=== PATIENT | male | born 1980 | race African-American/Black ===

== ENCOUNTER 2016-11-23 07:30 | Emergency (ER) | payer SELFPAY ==
[~2016-11-23] VITALS: Ht 175.3 cm; Wt 104.5 kg
[~2016-11-23 07:30] MED LIST: ONDA4
[2016-11-23 07:32] VITALS: BP 181/96; PULSE 80; RESP 18; TEMP 98; O2SAT 98
--- NOTE | 2016-11-23 08:12 | PD ---
HPI Chief Complaint: Cold / Flu Symptoms Time Seen by Provider: 08:09 Travel History International Travel<30 days: No Contact w/Intl Traveler<30days: No Traveled to known affect area: No History of Present Illness HPI Patient comes in for evaluation of sore throat, generalized body aches, sinus congestion, dry cough that began yesterday. Patient denies any known fevers, headaches, nausea, vomiting, abdominal pain, diarrhea, shortness of breath, chest pain, or known sick contacts. Patient denies doing anything for this. Patient states sore throat was worse with swallowing. Denies any radiation of the pain. PFSH Past Surgical History Other Surgery: Yes (LEFT JAW R/T FRACTURE) Social History Alcohol Use: Yes (OCC) Tobacco Use: Yes (1 PPD) Substance Use: Yes (MARIJUANA DAILY) Allergies-Medications (Allergen,Severity, Reaction): Coded Allergies: No Known Allergies (Unverified , 11/23/16) Reported Meds & Prescriptions Reported Meds & Active Scripts Active No Active Prescriptions or Reported Medications Review of Systems Except as stated in HPI: all other systems reviewed are Neg Physical Exam Narrative GENERAL: Well-developed, overly nourished, in no acute distress, and non-ill appearing. SKIN: Warm and dry. HEAD: Atraumatic. Normocephalic. EYES: Pupils equal and round. EOMI. No scleral icterus. No injection or drainage. ENT: No nasal bleeding or discharge. Mucous membranes pink and moist. Tympanic membranes pearly garcia bilaterally. Posterior pharynx mildly erythematous without exudate. Uvula is midline. No tenderness to facial sinuses to palpation. Patient is able to swallow own saliva and speaking in full sentences. NECK: Trachea midline. No cervical lymphadenopathy. Supple. No nuclear rigidity. CARDIOVASCULAR: Regular rate and rhythm. No murmur appreciated. RESPIRATORY: No accessory muscle use. No respiratory distress. Clear to auscultation. Breath sounds equal bilaterally. MUSCULOSKELETAL: No obvious deformities. No clubbing. No cyanosis. No edema. Full range of motion. NEUROLOGICAL: Awake and alert. No obvious cranial nerve deficits. Motor grossly within normal limits. Normal speech. PSYCHIATRIC: Appropriate mood and affect; insight and judgment normal. Data Data Last Documented VS Vital Signs Date Time Temp Pulse Resp B/P Pulse Ox O2 Delivery O2 Flow Rate FiO2 11/23/16 07:32 98.0 80 18 181/96 98 Room Air Orders Group A Rapid Strep Screen (11/23/16 08:08) Influenzae A/B Antigen (11/23/16 08:08) Strep Culture (Group A) (11/23/16 08:20) MDM Medical Decision Making Medical Screen Exam Complete: Yes Emergency Medical Condition: Yes Differential Diagnosis Strep pharyngitis, viral pharyngitis, influenza, viral syndrome, upper respiratory infection, other Narrative Course Patient looks great, non-ill appearing. The patient is tolerating fluids and is well hydrated. Appears viral symptom complex. No clinical evidence by history or evaluation to suspect meningitis and/or sepsis. There was no evidence to suggest peritonsillar abscess or retropharyngeal abscess. I discussed with the patient, diagnosis, plan of care and to follow up with the patients primary physician. The patient was instructed to return if the worsens in anyway, especially if not tolerating fluids, increased pain or swelling, difficulty swallowing or breathing, or as needed. The patient agreed with plan. Patient in no obvious distress upon re-evaluation. All pertinent laboratory result(s) discussed with patient. Patient was asked if they wanted to speak to my attending, which the patient did not wish to do at this time. Any questions/ concerns in reference to patient diagnosis/condition discussed and clarified prior to patient's discharge. Reinforced sheer importance of close follow up with patient's primary physician or primary care clinic. Instructed patient to return to ED immediately, if symptoms return/worsen. Pt showed understanding of above instructions. Further instructions and recommendations were detailed in discharge paperwork. Pt ambulated without difficulty out of ED at discharge. Diagnosis Primary Impression: Viral syndrome Patient Instructions: General Instructions, Viral Syndrome (DC) Additional Instructions: Follow-up with your primary care physician this week for reevaluation. Use over -the-counter cold and/or flu medication. Follow instructions on the packing. Drink plenty of non-caffeinated and nonalcoholic fluids. Return to the emergency department if symptoms get worse. Scripts No Active Prescriptions or Reported Meds Disposition: 01 DISCHARGE HOME Condition: Stable Doug Berg Nov 23, 2016 08:12
== END 2016-11-23 09:25 | disposition home or self-care (01) ==
LOC: NEPB 07:30
DX: B34.9 Viral infection, unspecified (principal); F17.200 Nicotine dependence, unspecified, uncomplicated
CPT/HCPCS: 87081; 87804; 87880; 99283

== ENCOUNTER 2017-05-03 01:34 | Emergency (ER) | payer OTHER ==
[~2017-05-03] VITALS: Ht 177.8 cm; Wt 120.0 kg
[2017-05-03 01:35] VITALS: BP 154/82; PULSE 74; RESP 20; TEMP 97.4; O2SAT 100
--- NOTE | 2017-05-03 01:56 | PD ---
HPI Chief Complaint: Chest Pain Time Seen by Provider: 01:53 Travel History International Travel<30 days: No Contact w/Intl Traveler<30days: No Traveled to known affect area: No History of Present Illness HPI 36-year-old male with history of smoking, seen by his primary care physician last week for bronchitis, presents to the ER today for 2 weeks' history of coughing, shortness of breath, intermittent chest pains especially with deep breaths. He denies any fevers or any other symptoms. He states symptoms worsen with exertion as well. Modifying Factors: Worse with deep breaths Associated Signs & Symptoms: Cough, shortness of breath, chest discomfort Risk Factors: Smoking PFSH Past Medical History Medical History: Denies Significant Hx Diminished Hearing: No Tetanus Vaccination: Unknown Influenza Vaccination: No Past Surgical History Other Surgery: Yes (LEFT JAW R/T FRACTURE) Social History Alcohol Use: Yes (OCC) Tobacco Use: Yes (1 PPD) Substance Use: Yes (MARIJUANA DAILY) Allergies-Medications (Allergen,Severity, Reaction): Coded Allergies: No Known Allergies (Unverified , 05/03/17) Reported Meds & Prescriptions Reported Meds & Active Scripts Active No Active Prescriptions or Reported Medications Review of Systems Except as stated in HPI: all other systems reviewed are Neg Physical Exam Narrative GENERAL: Middle age well-developed -[place] male patient currently in mild respiratory distress. SKIN: Focused skin assessment warm/dry. HEAD: Atraumatic. Normocephalic. EYES: Pupils equal and round. No scleral icterus. No injection or drainage. ENT: No nasal bleeding or discharge. Mucous membranes pink and moist. NECK: Trachea midline. No JVD. CARDIOVASCULAR: Regular rate and rhythm. No murmur appreciated. RESPIRATORY: No accessory muscle use. Wheezing throughout. Breath sounds equal bilaterally. GASTROINTESTINAL: Abdomen soft, non-tender, nondistended. Hepatic and splenic margins not palpable. MUSCULOSKELETAL: No obvious deformities. No clubbing. No cyanosis. No edema. NEUROLOGICAL: Awake and alert. No obvious cranial nerve deficits. Motor grossly within normal limits. Normal speech. PSYCHIATRIC: Appropriate mood and affect; insight and judgment normal. Data Data Last Documented VS Vital Signs Date Time Temp Pulse Resp B/P Pulse Ox O2 Delivery O2 Flow Rate FiO2 05/03/17 02:00 98 Nasal Cannula 2 05/03/17 02:00 18 05/03/17 01:35 97.4 74 154/82 Orders Complete Blood Count With Diff (05/03/17 01:53) Comprehensive Metabolic Panel (05/03/17 01:53) B-Type Natriuretic Peptide (05/03/17 01:53) D-Dimer (05/03/17 01:53) Act Partial Throm Time (Ptt) (05/03/17 01:53) Prothrombin Time / Inr (Pt) (05/03/17 01:53) Ckmb (Isoenzyme) Profile (05/03/17 01:53) Troponin I (05/03/17 01:53) Iv Access Insert/Monitor (05/03/17 01:53) Electrocardiogram (05/03/17 01:53) Ecg Monitoring (05/03/17 01:53) Oximetry (05/03/17 01:53) Oxygen Administration (05/03/17 01:53) Chest, Single Ap (05/03/17 01:53) Sodium Chloride 0.9% Flush (Ns Flush) (05/03/17 02:00) Methylprednisolone So Succ Inj (Solumedr (05/03/17 02:00) Albuterol-Ipratropium Neb (Duoneb Neb) (05/03/17 02:00) CKMB (05/03/17 01:50) CKMB% (05/03/17 01:50) Labs Laboratory Tests Test 05/03/17 01:50 White Blood Count 9.2 TH/MM3 Red Blood Count 4.94 MIL/MM3 Hemoglobin 14.0 GM/DL Hematocrit 41.4 % Mean Corpuscular Volume 83.8 FL Mean Corpuscular Hemoglobin 28.3 PG Mean Corpuscular Hemoglobin 33.7 % Concent Red Cell Distribution Width 13.7 % Platelet Count 234 TH/MM3 Mean Platelet Volume 8.1 FL Neutrophils (%) (Auto) 45.8 % Lymphocytes (%) (Auto) 37.1 % Monocytes (%) (Auto) 12.8 % Eosinophils (%) (Auto) 3.5 % Basophils (%) (Auto) 0.8 % Neutrophils # (Auto) 4.2 TH/MM3 Lymphocytes # (Auto) 3.4 TH/MM3 Monocytes # (Auto) 1.2 TH/MM3 Eosinophils # (Auto) 0.3 TH/MM3 Basophils # (Auto) 0.1 TH/MM3 CBC Comment DIFF FINAL Differential Comment Prothrombin Time 10.5 SEC Prothromb Time International 1.0 RATIO Ratio Activated Partial 27.5 SEC Thromboplast Time D-Dimer Quantitative (PE/DVT) LESS THAN 0.19 MG/L FEU Sodium Level 140 MEQ/L Potassium Level 3.7 MEQ/L Chloride Level 105 MEQ/L Carbon Dioxide Level 28.2 MEQ/L Anion Gap 7 MEQ/L Blood Urea Nitrogen 17 MG/DL Creatinine 1.26 MG/DL Estimat Glomerular Filtration 79 ML/MIN Rate Random Glucose 101 MG/DL Calcium Level 8.9 MG/DL Total Bilirubin 0.2 MG/DL Aspartate Amino Transf 25 U/L (AST/SGOT) Alanine Aminotransferase 39 U/L (ALT/SGPT) Alkaline Phosphatase 76 U/L Total Creatine Kinase 269 U/L Creatine Kinase MB 0.9 NG/ML Troponin I LESS THAN 0.02 NG/ML B-Type Natriuretic Peptide LESS THAN 2 PG/ML Total Protein 7.8 GM/DL Albumin 3.7 GM/DL MDM Medical Decision Making Medical Screen Exam Complete: Yes Emergency Medical Condition: Yes Medical Record Reviewed: Yes Interpretation(s) EKG shows normal sinus rhythm at a rate of 63 bpm with no signs of acute ST-T changes. Laboratory Tests Test 05/03/17 01:50 Monocytes (%) (Auto) 12.8 % (0.0-8.0) Monocytes # (Auto) 1.2 TH/MM3 (0-0.9) Estimat Glomerular Filtration 79 ML/MIN (>89) Rate Troponin I LESS THAN 0.02 NG/ML (0.02-0.05) Last 24 hours Impressions Chest X-Ray 05/03/17 0153 Signed Impressions: Service Date/Time: Wednesday, May 03, 2017 02:11 - CONCLUSION: No evidence of acute cardiopulmonary disease. Sergio Browning MD Differential Diagnosis Shortness of breath, chest paincostochondritis versus pleurisy versus bronchitis versus pneumonia versus ACS versus PE Narrative Course Chest x-ray did not show any signs of acute pulmonary processes. D-dimer is negative. Patient was given some Solu-Medrol and DuoNeb's in the ER with improvement in how he is breathing. He has been smoking according to his and has not been taking his medications prescribed by his physician regularly. At this point, I have asked that he take his medications more consistently and I will give him a Z-Toney instead since this may represent an underlying bronchitis or atypical pneumonia. Vital signs are stable in the ER. We will have him follow-up with his primary care physician. Return for any worsening in symptoms as necessary. The plan has been discussed with him and he states understanding. Diagnosis Primary Impression: Bronchitis Med/Other Pt SpecificInfo: Prescription(s) given Scripts E-Z Spacer-Aerosol Holding Chamber 1 Mis Mis #1 EA .ROUTE DIRECTED Ref 0 Prov:Zuleyma Giron MD 05/03/17 Azithromycin (Zithromax Z-Toney)250 Mg Dneo354 Mg PO DIRECTED #1 DSPK Ref 0 500 MG (2 tabs) day 1, then 1 tab days 2-5. Prov:Zuleyma Giron MD 05/03/17 Disposition: 01 DISCHARGE HOME Condition: Stable Zuleyma Giron MD May 03, 2017 01:56
[2017-05-03 02:00] VITALS: RESP 18; O2SAT 98
[2017-05-03] MEDS ORDERED: methylPREDNISolone SOD SUCC 125 MG/2 ML VIAL IVP ONE (02:00)
[2017-05-03] MEDS ORDERED: SODIUM CHLORIDE 0.9% FLUSH 10 ML FLUSH IVF PRN (02:00)
[2017-05-03 02:11] LABS: AUTOMATED NEUTROPHIL # 4.2 TH/MM3 (1.8-7.7); BASOPHIL # 0.1 TH/MM3 (0-0.2); BASOPHIL % 0.8 % (0.0-2.0); EOSINOPHIL # 0.3 TH/MM3 (0-0.4); EOSINOPHIL % 3.5 % (0.0-4.0); HEMATOCRIT 41.4 % (39.0-51.0); HEMO FLAGS DIFF FINAL; LYMPH % 37.1 % (9.0-44.0); LYMPHOCYTE # 3.4 TH/MM3 (1.0-4.8); MEAN CELL VOLUME 83.8 FL (80.0-100.0); MEAN CORPUSCULAR HEMOGLOBIN 28.3 PG (27.0-34.0); MEAN CORPUSCULAR HGB CONC 33.7 % (32.0-36.0); MONO % 12.8 % (0.0-8.0); NEUT % 45.8 % (16.0-70.0); PLATELET COUNT 234 TH/MM3 (150-450); RED BLOOD COUNT 4.94 MIL/MM3 (4.50-5.90); RED CELL DISTRIBUTION WIDTH 13.7 % (11.6-17.2); WHITE BLOOD COUNT 9.2 TH/MM3 (4.0-11.0)
[2017-05-03] MEDS: RESP: ALBUTEROL 2.5 MG/IPRATROPIUM 0.5 MG NEB (SCH) INH ×2 (02:11→02:12)
--- NOTE | 2017-05-03 02:17 | RADRPT ---
EXAM DATE/TIME: 05/03/2017 02:11 [facility] COMPARISON: No previous studies available for comparison. INDICATIONS : Shortness of breath. MEDICAL HISTORY : None. SURGICAL HISTORY : None. ENCOUNTER: Initial ACUITY: 1 day PAIN SCORE: 0/10 LOCATION: Bilateral chest FINDINGS: A single view of the chest demonstrates the lungs to be symmetrically aerated without evidence of mas s, infiltrate or effusion. The cardiomediastinal contours are unremarkable. Osseous structures are intact. CONCLUSION: No evidence of acute cardiopulmonary disease. Sergio Browning MD on May 03, 2017 at 2:16 Board Certified Radiologist. This report was verified electronically.
[2017-05-03 02:24] LABS: APTT (PATIENT) 27.5 SEC (24.3-30.1); PROTHROMBIN TIME - PATIENT 10.5 SEC (9.8-11.6)
[2017-05-03 02:33] LABS: ALKALINE PHOSPHATASE 76 U/L (45-117); CREATINE KINASE 269 U/L (39-308); TOTAL BILIRUBIN ADULT 0.2 MG/DL (0.2-1.0)
[2017-05-03 02:46] LABS: CKMB 0.9 NG/ML (0.5-3.6)
[2017-05-03 02:51] LABS: ALT (GPT) 39 U/L (12-78); ANION GAP 7 MEQ/L (5-15); AST (GOT) 25 U/L (15-37); BICARBONATE 28.2 MEQ/L (21.0-32.0); BLOOD UREA NITROGEN 17 MG/DL (7-18); CHLORIDE 105 MEQ/L (98-107); GLOMERULAR FILTRATION RATE 79 ML/MIN (>89); POTASSIUM 3.7 MEQ/L (3.5-5.1); SODIUM (NA) 140 MEQ/L (136-145)
[2017-05-03] MEDS ORDERED: ZITHTAB PO (03:02)
[2017-05-03] MEDS ORDERED: E-ZMIS3 (03:02)
--- NOTE | 2017-05-03 17:12 | EKG ---
Date Performed: 05/03/2017 Time Performed: 01:53:23 PTAGE: 36 years EKG: ECTOPIC ATRIAL RHYTHM MARKED RIGHT AXIS DEVIATION NONSPECIFIC ST & T-WAVE ABNORMALITY ABNOR MAL ECG NO PREVIOUS TRACING DOCTOR: Rachel Key Interpretating Date/Time 05/03/2017 17:07:54
== END 2017-05-03 03:09 | disposition home or self-care (01) ==
LOC: NEPE 01:34
DX: J40 Bronchitis, not specified as acute or chronic (principal); R94.31 Abnormal electrocardiogram [ECG] [EKG]; F17.210 Nicotine dependence, cigarettes, uncomplicated; F12.90 Cannabis use, unspecified, uncomplicated
CPT/HCPCS: 71010; 80053; 82550; 82552; 83880; 84484; 85025; 85379; 85610; 85730; 93005; 94640; 94664; 96374; 99285; J2930